=== PATIENT | female | born 1975 | race African-American/Black ===

== ENCOUNTER 2016-07-12 10:21 | Emergency (ER) | payer OTHER ==
[~2016-07-12] VITALS: Ht 162.6 cm; Wt 91.0 kg
[~2016-07-12 10:21] MED LIST: IBUP100T53; TYLENOL WITH CODEINE
[2016-07-12] MEDS ORDERED: METHOCARBAMOL 500MG TABLET PO ONE (14:30)
[2016-07-12] MEDS ORDERED: KETOROLAC 60MG/2ML VIAL IM ONE (14:30)
[2016-07-12] MEDS ORDERED: HYDROCODONE/ACETAMINOPHEN 5/325MG TABLET PO ONE (14:30)
[2016-07-12 14:45] VITALS: BP 129/71
[2016-07-12 14:47] LABS: BASOPHILS % 0.5 % (0.0-2.0); EOSINOPHILS % 0.2 % (0.0-5.0); HEMATOCRIT. 37.1 % (36.0-48.0); HEMOGLOBIN. 12.5 g/dL (12.0-16.0); LYMPHOCYTES % 12.4 % (20.0-50.0); MEAN CORPUSCULAR HEMOGLOBIN 30.3 pg (28.0-32.0); MEAN CORPUSCULAR HGB CONC 33.8 g/dL (31.0-37.0); MEAN CORPUSCULAR VOLUME 89.9 fL (81.0-99.0); MEAN PLATELET VOLUME 8.7 fl (7.4-10.4); MONOCYTES % 13.6 % (2.0-8.0); NEUTROPHILS % 73.3 % (40.0-76.0); PLATELET 287 x1000/uL (130-400); RED BLOOD CELL COUNT 4.13 mill/uL (4.2-5.4); RED CELL DISTRIBUTION WIDTH 13.9 % (11.6-14.6); WHITE BLOOD COUNT 6.3 x1000/uL (4.5-11.0)
[2016-07-12 14:52] LABS: CHLORIDE 101 mEq/L (98-107)
[2016-07-12 15:01] LABS: ALANINE AMINOTRANSFERASE 20 IU/L (13-61); ALBUMIN 3.7 g/dL (3.4-5.0); ANION GAP 11; CALCIUM 8.9 mg/dL (8.5-10.1); CARBON DIOXIDE 31 mEq/L (21-32); INDEX HEMOLYSI 1 (1-3); INDEX ICTERIC 1 (1-4); INDEX LIPEMIC 1 (1-3); UREA NITROGEN BLOOD 8 mg/dL (7-21); eGFR > 60 mL/min (>60)
== END 2016-07-12 17:44 | disposition home or self-care (01) ==
LOC: ER 11:15
DX: J11.1 Influenza due to unidentified influenza virus with other respiratory manifestations (principal); Z98.890 Other specified postprocedural states; Z97.5 Presence of (intrauterine) contraceptive device
CPT/HCPCS: 36415; 71010; 80053; 85025; 87804; 93005; 96372; 99285; J1885; Z7610

== ENCOUNTER 2016-07-24 09:09 | Emergency (ER) | payer OTHER ==
[~2016-07-24] VITALS: Ht 154.9 cm; Wt 91.0 kg
[2016-07-24] MEDS ORDERED: LORAZEPAM 2MG/ML CPJ IV ONE (16:00)
[2016-07-24] MEDS ORDERED: IPRATROPIUM/ALBUTEROL 0.5-3(2.5)MG/3ML NEB HHN ONE (16:15)
[2016-07-24] MEDS ORDERED: IPRATROPIUM/ALBUTEROL 0.5-3(2.5)MG/3ML NEB HHN NR (16:15)
[2016-07-24 17:00] VITALS: BP 132/87
== END 2016-07-24 17:43 | disposition home or self-care (01) ==
LOC: ER 09:10
DX: J45.909 Unspecified asthma, uncomplicated (principal); D64.9 Anemia, unspecified; Z79.1 Long term (current) use of non-steroidal anti-inflammatories (NSAID)
CPT/HCPCS: 94640; 99283; J7620

== ENCOUNTER 2017-08-13 10:34 | Emergency (ER) | payer MEDICAID, OTHER ==
[~2017-08-13] VITALS: Ht 162.6 cm; Wt 93.0 kg
[2017-08-13] MEDS ORDERED: FAMOTIDINE 20MG/2ML VIAL IV STA (11:06)
[2017-08-13] MEDS ORDERED: MORPHINE SULFATE 4 MG/ML CPJ (NOT FOR IM USE) IV STA (11:06)
[2017-08-13] MEDS ORDERED: ONDANSETRON HCL 4MG/2ML VIAL IV STA (11:06)
[2017-08-13] MEDS ORDERED: SODIUM CHLORIDE 0.9% 1,000 ML IV ONE (11:06)
[2017-08-13 11:23] LABS: BASOPHILS % 0.5 % (0.0-2.0); HEMATOCRIT. 37.7 % (36.0-48.0); HEMOGLOBIN. 13.1 g/dL (12.0-16.0); LYMPHOCYTES % 29.7 % (20.0-50.0); MEAN CORPUSCULAR HEMOGLOBIN 31.2 pg (28.0-32.0); MEAN CORPUSCULAR VOLUME 89.6 fL (81.0-99.0); MEAN PLATELET VOLUME 9.3 fl (7.4-10.4); MONOCYTES % 7.8 % (2.0-8.0); PLATELET 362 x1000/uL (130-400); RED BLOOD CELL COUNT 4.21 mill/uL (4.2-5.4); RED CELL DISTRIBUTION WIDTH 14.2 % (11.6-14.6)
[2017-08-13 11:30] LABS: CHLORIDE 105 mEq/L (98-107)
[2017-08-13 11:31] LABS: PARTIAL THROMBOPLASTIN TIME 28.2 sec (23.4-31.0); PROTHROMBIN TIME 10.7 sec (9.4-11.6)
[2017-08-13 12:12] LABS: CLARITY URINE CLEAR (CLEAR); COLOR URINE YELLOW (YELLOW); KETONES URINE NEGATIVE (NEGATIVE); LEUKOCYTE ESTERASE URINE NEGATIVE (NEGATIVE); NITRITE URINE NEGATIVE (NEGATIVE); OCCULT BLOOD URINE 2+ (NEGATIVE); PH URINE 5.5 (4.5-8.0); PROTEIN URINE NEGATIVE (NEGATIVE); SPECIFIC GRAVITY URINE 1.015 (1.005-1.030); UROBILINOGEN URINE 0.2 E.U./dL (0.2-1.0)
[2017-08-13 12:15] LABS: HCG SCREEN NEGATIVE
[2017-08-13] MEDS ORDERED: CEFTRIAXONE 1 G PREMIX 50 ML IV ONE (13:00)
[2017-08-13 15:55] VITALS: BP 138/68
== END 2017-08-13 15:55 | disposition home or self-care (01) ==
LOC: ER 12:17
DX: K80.70 Calculus of gallbladder and bile duct without cholecystitis without obstruction (principal); N39.0 Urinary tract infection, site not specified; E66.9 Obesity, unspecified; K21.9 Gastro-esophageal reflux disease without esophagitis
CPT/HCPCS: 36415; 74021; 74022; 76705; 80053; 81003; 81025; 83690; 84703; 85025; 85610; 85730; 96361; 96365; 96375; 99285; J0696; J2270; J2405; J3490; J7030; Z7610

== ENCOUNTER 2022-08-25 12:15 | Emergency (ER) | payer MEDICAID ==
[~2022-08-25] VITALS: Ht 170.2 cm; Wt 74.0 kg
[2022-08-25] MEDS ORDERED: TETANUS, DIPHTHERIA, PERTUSSIS VAC/PF 0.5ML (>10YR OLD) IM ONE ×2 (16:45→18:00)
[2022-08-25] MEDS ORDERED: SILVER SULFADIAZINE 1% CREAM 25GM TOP ONE (16:45)
[2022-08-25] MEDS ORDERED: KETOROLAC 60MG/2ML VIAL IM ONE (16:45)
[2022-08-25] MEDS ORDERED: CEPHALEXIN 250MG CAPSULE PO ONE (16:45)
[2022-08-25] MEDS ORDERED: CEPH500C2 MT (16:48)
[2022-08-25] MEDS ORDERED: T3 PO (16:48)
[2022-08-25] MEDS ORDERED: IBUP-2029 MT (16:48)
[2022-08-25] MEDS ORDERED: SILV50CR31 TP (16:48)
[2022-08-25] MEDS ORDERED: CEPHALEXIN 250MG CAPSULE PO NR (17:00)
[2022-08-25 17:10] VITALS: BP 152/92
[2022-08-25] MEDS ORDERED: KETOROLAC 30MG/ML VIAL IM NR (17:15)
== END 2022-08-25 18:00 | disposition home or self-care (01) ==
LOC: ER 12:15
DX: T21.21XA Burn of second degree of chest wall, initial encounter (principal); T31.0 Burns involving less than 10% of body surface; X08.8XXA Exposure to other specified smoke, fire and flames, initial encounter; Y93.89 Activity, other specified; Y92.89 Other specified places as the place of occurrence of the external cause; Y99.8 Other external cause status; D64.9 Anemia, unspecified; Z98.890 Other specified postprocedural states; Z79.899 Other long term (current) drug therapy
CPT/HCPCS: 90471; 90715; 96372; 99284; J1885; Z7610

== ENCOUNTER 2023-03-14 11:15 | Emergency (ER) | payer MEDICAID ==
[~2023-03-14] VITALS: Ht 167.6 cm; Wt 100.0 kg
[~2023-03-14 11:15] MED LIST changes: +CEPH500C2 MT; +IBUP-2029 MT; +SILV50CR31 TP; +T3 PO
[2023-03-14 11:30] VITALS: O2SAT 100
[2023-03-14] MEDS ORDERED: KETOROLAC 30MG/ML VIAL IM ONE (12:30)
[2023-03-14] MEDS ORDERED: NAPR-1176 MT (13:44)
[2023-03-14] MEDS ORDERED: AMOX1TAB16 MT (13:46)
[2023-03-14] MEDS ORDERED: KETOROLAC 30MG/ML VIAL IM NR (14:45)
[2023-03-14 14:58] VITALS: BP 153/94
[2023-03-14 15:06] VITALS: PULSE 109; RESP 18; TEMP 98.2
== END 2023-03-14 15:09 | disposition home or self-care (01) ==
LOC: ER 11:24
DX: K04.7 Periapical abscess without sinus (principal); H92.01 Otalgia, right ear; D64.9 Anemia, unspecified; Z98.890 Other specified postprocedural states
CPT/HCPCS: 96372; 99283; J1885; Z7610

== ENCOUNTER 2023-10-03 07:12 | Emergency (ER) | payer MEDICAID ==
[~2023-10-03] VITALS: Ht 162.6 cm; Wt 73.0 kg
[~2023-10-03 07:12] MED LIST changes: +AMOX1TAB16 MT; +NAPR-1176 MT
[2023-10-03 07:15] VITALS: BP 145/88; PULSE 86; RESP 18; TEMP 98; O2SAT 99
[2023-10-03] MEDS: KETOROLAC 30MG/ML VIAL IM ONE (08:58)
== END 2023-10-03 10:36 | disposition home or self-care (01) ==
LOC: ER 07:12
DX: M54.9 Dorsalgia, unspecified (principal); D64.9 Anemia, unspecified; Z98.890 Other specified postprocedural states
CPT/HCPCS: 99283; 81025; 96372; J1885

== ENCOUNTER 2023-10-09 19:21 | Emergency (ER) | payer MEDICAID ==
[~2023-10-09] VITALS: Ht 165.1 cm; Wt 80.0 kg
[2023-10-09 19:28] VITALS: TEMP 98.2; O2SAT 100
[2023-10-09 20:00] VITALS: BP 136/73; PULSE 81; RESP 16
[2023-10-09] MEDS: KETOROLAC 30MG/ML VIAL IM ONE (20:00)
[2023-10-09] MEDS ORDERED: METH-653 MT (20:23)
[2023-10-09] MEDS ORDERED: IBUP-2029 MT (20:23)
[2023-10-09] MEDS: METHOCARBAMOL 500MG TABLET PO ONE (20:41)
== END 2023-10-09 21:24 | disposition home or self-care (01) ==
LOC: ER 19:21
DX: S39.012A Strain of muscle, fascia and tendon of lower back, initial encounter (principal); Z79.899 Other long term (current) drug therapy; X58.XXXA Exposure to other specified factors, initial encounter; Y93.89 Activity, other specified; Y92.89 Other specified places as the place of occurrence of the external cause; Y99.8 Other external cause status
CPT/HCPCS: 99283; 96372; J1885

== ENCOUNTER 2023-11-21 04:11 | Emergency (ER) | payer MEDICAID ==
[~2023-11-21] VITALS: Ht 170.2 cm; Wt 77.0 kg
[~2023-11-21 04:11] MED LIST changes: +METH-653 MT
[2023-11-21 04:15] VITALS: O2SAT 100
[2023-11-21] MEDS ORDERED: ACETAMINOPHEN 325MG TABLET PO ONE (05:00)
[2023-11-21] MEDS: LIDOCAINE 5% PATCH TOP SCH (05:00)
[2023-11-21] MEDS ORDERED: METHOCARBAMOL 500MG TABLET PO ONE (06:00)
[2023-11-21] MEDS ORDERED: KETOROLAC 30MG/ML VIAL IM ONE (06:00)
[2023-11-21] MEDS: ACETAMINOPHEN 325MG TABLET PO NR (08:15)
[2023-11-21] MEDS: METHOCARBAMOL 500MG TABLET PO NR (08:15)
[2023-11-21] MEDS: KETOROLAC 30MG/ML VIAL IM NR (08:15)
[2023-11-21] MEDS ORDERED: METH-653 MT (08:42)
[2023-11-21] MEDS ORDERED: KETO10TA2 MT (08:42)
[2023-11-21 09:55] VITALS: BP 145/89; PULSE 80; RESP 16; TEMP 98.4
== END 2023-11-21 10:20 | disposition home or self-care (01) ==
LOC: ER 04:22
DX: M54.9 Dorsalgia, unspecified (principal)
CPT/HCPCS: 99284; 81025; 96372; J1885

== ENCOUNTER 2024-02-21 08:51 | Emergency (ER) | payer MEDICAID ==
[~2024-02-21] VITALS: Ht 162.6 cm; Wt 82.0 kg
[~2024-02-21 08:51] MED LIST changes: +KETO10TA2 MT; +METH4TAB95 MT
[2024-02-21 08:54] VITALS: O2SAT 100
[2024-02-21] MEDS ORDERED: IBUP-2028 PO (08:56)
[2024-02-21 09:18] VITALS: BP 118/63
[2024-02-21] MEDS: ACETAMINOPHEN 325MG TABLET PO ONE (09:18)
[2024-02-21] MEDS: KETOROLAC 30MG/ML VIAL IM ONE (09:18)
[2024-02-21 09:20] VITALS: PULSE 72; RESP 16; TEMP 36.66960; O2SAT 100
== END 2024-02-21 09:19 | disposition home or self-care (01) ==
LOC: ER 09:06
DX: G89.29 Other chronic pain (principal); M54.50 Low back pain, unspecified; Z79.899 Other long term (current) drug therapy
CPT/HCPCS: 96372; 99283; J1885; Z7610

== ENCOUNTER 2024-03-25 16:27 | Emergency (ER) | payer MEDICAID ==
[~2024-03-25] VITALS: Ht 162.6 cm; Wt 63.0 kg
[~2024-03-25 16:27] MED LIST changes: +IBUP-2028 PO
[2024-03-25 17:16] VITALS: O2SAT 100
[2024-03-25 17:53] LABS: BASOPHILS % 0.3 % (0.0-2.0); EOSINOPHILS % 4.6 % (0.0-5.0); HEMATOCRIT. 21.8 % (36.0-48.0); HEMOGLOBIN. 7.2 g/dL (12.0-16.0); LYMPHOCYTES % 33.4 % (20.0-50.0); MEAN CORPUSCULAR HEMOGLOBIN 30.2 pg (28.0-32.0); MEAN CORPUSCULAR HGB CONC 33.2 g/dL (31.0-37.0); MEAN CORPUSCULAR VOLUME 90.9 fL (81.0-99.0); MEAN PLATELET VOLUME 7.1 fl (7.4-10.4); MONOCYTES % 10.4 % (2.0-8.0); NEUTROPHILS % 51.3 % (40.0-76.0); PLATELET 469 x1000/uL (130-400); RED CELL DISTRIBUTION WIDTH 21.3 % (11.6-14.6); WHITE BLOOD COUNT 4.9 x1000/uL (4.5-11.0)
[2024-03-25 18:04] LABS: CHLORIDE 101 mEq/L (98-107); POTASSIUM 4.1 mEq/L (3.5-5.1); SODIUM 131 mEq/L (136-145)
[2024-03-25 18:05] LABS: CALCIUM 8.8 mg/dL (8.7-10.4); CARBON DIOXIDE 27 mEq/L (21-32)
[2024-03-25 18:10] LABS: CREATININE 1.1 mg/dL (0.6-1.0); GLUCOSE 80 mg/dL (70-105); UREA NITROGEN BLOOD 18 mg/dL (9-23)
[2024-03-25 18:11] LABS: HCG SCREEN NEGATIVE; TROPONIN I HIGH SENSITIVITY < 4 ng/L (3.0-34)
[2024-03-25 18:12] LABS: ALANINE AMINOTRANSFERASE 12 IU/L (10-49); ALBUMIN 3.1 g/dL (3.2-4.8); ASPARTATE AMINOTRANSFERASE 21 IU/L (<34); BILIRUBIN TOTAL 0.3 mg/dL (0.1-1.0); PROTEIN TOTAL 11.9 g/dL (6.0-8.3)
[2024-03-25 18:14] LABS: BILIRUBIN DIRECT < 0.1 mg/dL (<=3.0)
[2024-03-26 07:30] VITALS: TEMP 36.61404
[2024-03-26 10:28] VITALS: BP 109/73; PULSE 64; RESP 16; O2SAT 99
== END 2024-03-26 10:29 | disposition home or self-care (01) ==
LOC: ER 16:27
DX: D64.9 Anemia, unspecified (principal); Z98.890 Other specified postprocedural states
CPT/HCPCS: 36415; 71045; 80048; 80076; 84484; 84703; 85025; 86850; 86900; 93005; 99285

== ENCOUNTER 2024-12-25 06:06 | Emergency (ER) | payer OTHER ==
[~2024-12-25] VITALS: Ht 154.9 cm; Wt 64.0 kg
[~2024-12-25 06:06] MED LIST changes: +IBUP-1455 MT; -IBUP-2029 MT
[2024-12-25 06:11] VITALS: O2SAT 100
[2024-12-25] MEDS ORDERED: AMOX1TAB16 PO (07:26)
[2024-12-25] MEDS ORDERED: TOPUD PO (07:26)
[2024-12-25] MEDS: ACETAMINOPHEN 325MG TABLET PO ONE (07:47)
[2024-12-25 07:50] VITALS: BP 107/68; PULSE 82; RESP 18; TEMP 36.5; O2SAT 100
== END 2024-12-25 07:52 | disposition home or self-care (01) ==
LOC: ER 06:23
DX: H66.92 Otitis media, unspecified, left ear (principal); Z79.1 Long term (current) use of non-steroidal anti-inflammatories (NSAID); Z79.899 Other long term (current) drug therapy; Z98.890 Other specified postprocedural states
CPT/HCPCS: 99283

== ENCOUNTER 2025-01-07 13:26 | Emergency (ER) | payer OTHER ==
[~2025-01-07] VITALS: Ht 154.9 cm; Wt 59.0 kg
[~2025-01-07 13:26] MED LIST changes: +AMOX1TAB16 PO; +TOPUD PO
[2025-01-07 13:35] VITALS: O2SAT 100
[2025-01-07 16:04] LABS: BASOPHILS % 0.6 % (0.0-2.0); EOSINOPHILS % 9.8 % (0.0-5.0); LYMPHOCYTES % 45.2 % (20.0-50.0); MEAN PLATELET VOLUME 6.8 fl (7.4-10.4); MONOCYTES % 8.1 % (2.0-8.0); NEUTROPHILS % 36.3 % (40.0-76.0); PLATELET 348 x1000/uL (130-400); RED BLOOD CELL COUNT 1.98 mill/uL (4.2-5.4); RED CELL DISTRIBUTION WIDTH 22.3 % (11.6-14.6)
[2025-01-07 16:09] LABS: ADD RBC MORPHOLOGY YES; HEMATOCRIT. 17.3 % (36.0-48.0); HEMOGLOBIN. 5.7 g/dL (12.0-16.0)
[2025-01-07 16:20] LABS: CREATININE 1.5 mg/dL (0.6-1.0); UREA NITROGEN BLOOD 22 mg/dL (9-23)
[2025-01-07 16:21] LABS: ASPARTATE AMINOTRANSFERASE 28 IU/L (<34)
[2025-01-07 16:22] LABS: BILIRUBIN DIRECT < 0.1 mg/dL (<=3.0); BILIRUBIN TOTAL 0.2 mg/dL (0.1-1.0)
[2025-01-07 16:26] LABS: PROTEIN TOTAL > 12.0 g/dL (6.0-8.3)
[2025-01-07 16:49] LABS: PLATELET ESTIMATE NORMAL
[2025-01-07] MEDS ORDERED: DOCU-422 MT (17:37)
[2025-01-07] MEDS ORDERED: FERR325T6 MT (17:37)
[2025-01-07] MEDS ORDERED: FLUT9.9S BOTHNSTRLS (17:37)
[2025-01-07] MEDS ORDERED: AMOX1TAB16 MT (17:37)
[2025-01-07 18:12] VITALS: BP 140/84; PULSE 56; RESP 16; TEMP 37.1; O2SAT 100
== END 2025-01-07 18:13 | disposition left against medical advice (07) ==
LOC: ER 13:26
DX: H66.92 Otitis media, unspecified, left ear (principal); D64.9 Anemia, unspecified; D72.819 Decreased white blood cell count, unspecified; E87.1 Hypo-osmolality and hyponatremia; E87.5 Hyperkalemia; H91.90 Unspecified hearing loss, unspecified ear; Z53.29 Procedure and treatment not carried out because of patient's decision for other reasons; Z59.01 Sheltered homelessness; Z79.1 Long term (current) use of non-steroidal anti-inflammatories (NSAID)
CPT/HCPCS: 36415; 80048; 80076; 85025; 99283

== ENCOUNTER 2025-01-08 11:54 | Emergency (ER) | payer OTHER ==
[~2025-01-08] VITALS: Ht 154.9 cm; Wt 60.0 kg
[~2025-01-08 11:54] MED LIST changes: +DOCU-422 MT; +FERR325T6 MT; +FLUT9.9S BOTHNSTRLS
[2025-01-08 12:02] VITALS: O2SAT 100
[2025-01-08 12:35] LABS: BASOPHILS % 0.8 % (0.0-2.0); EOSINOPHILS % 9.7 % (0.0-5.0); LYMPHOCYTES % 45.9 % (20.0-50.0); MEAN PLATELET VOLUME 6.7 fl (7.4-10.4); MONOCYTES % 7.7 % (2.0-8.0); NEUTROPHILS % 35.9 % (40.0-76.0); PLATELET 361 x1000/uL (130-400); RED BLOOD CELL COUNT 2.09 mill/uL (4.2-5.4); RED CELL DISTRIBUTION WIDTH 21.7 % (11.6-14.6)
[2025-01-08 12:53] LABS: HEMATOCRIT. 18.1 % (36.0-48.0); HEMOGLOBIN. 6.0 g/dL (12.0-16.0)
[2025-01-08 15:17] LABS: INR 1.6
[2025-01-08 15:18] LABS: CREATININE 1.4 mg/dL (0.6-1.0)
[2025-01-08 15:20] LABS: UREA NITROGEN BLOOD 20.0 mg/dL (9-23)
[2025-01-08 15:21] LABS: HCG SCREEN NEGATIVE
[2025-01-08 15:24] VITALS: BP 118/80; PULSE 76; RESP 16; TEMP 37.1; O2SAT 100
== END 2025-01-08 14:16 | disposition short-term general hospital (02) ==
LOC: ER 12:49 → CANBEDREQ 14:11 → ER 14:16
DX: N18.9 Chronic kidney disease, unspecified (principal); D63.1 Anemia in chronic kidney disease; N17.9 Acute kidney failure, unspecified; R53.1 Weakness; Z79.1 Long term (current) use of non-steroidal anti-inflammatories (NSAID); Z79.899 Other long term (current) drug therapy; Z98.890 Other specified postprocedural states
CPT/HCPCS: 80048; 84703; 85025; 85610; 85730; 86850; 86900; 86901; 86920; 36415; 99291; Z7610; A4606

== ENCOUNTER 2025-02-15 12:19 | Emergency (ER) | payer OTHER ==
[~2025-02-15] VITALS: Ht 160 cm; Wt 70.0 kg
[2025-02-15 12:25] VITALS: TEMP 36.9; O2SAT 100
[2025-02-15 13:06] LABS: CLARITY URINE CLOUDY (CLEAR); COLOR URINE YELLOW (YELLOW); GLUCOSE URINE NEGATIVE (NEGATIVE); KETONES URINE NEGATIVE (NEGATIVE); LEUKOCYTE ESTERASE URINE TRACE (NEGATIVE); NITRITE URINE NEGATIVE (NEGATIVE); OCCULT BLOOD URINE 2+ (NEGATIVE); PH URINE 6.0 (4.5-8.0); PROTEIN URINE TRACE (NEGATIVE); SPECIFIC GRAVITY URINE 1.015 (1.005-1.030); UROBILINOGEN URINE 0.2 E.U./dL (0.2-1.0)
[2025-02-15 13:20] LABS: HYALINE CASTS URINE 0-5 /lpf; SQUAMOUS EPITHELIAL CELL URINE 3+ /lpf (RARE/1+)
[2025-02-15 13:21] LABS: BACTERIA URINE 3+; WBC URINE 0-2 /hpf (0-2)
[2025-02-15 13:28] LABS: BASOPHILS % 0.5 % (0.0-2.0); EOSINOPHILS % 6.7 % (0.0-5.0); HEMATOCRIT. 21.3 % (36.0-48.0); HEMOGLOBIN. 7.2 g/dL (12.0-16.0); LYMPHOCYTES % 42.9 % (20.0-50.0); MEAN PLATELET VOLUME 7.1 fl (7.4-10.4); MONOCYTES % 9.3 % (2.0-8.0); NEUTROPHILS % 40.6 % (40.0-76.0); PLATELET 248 x1000/uL (130-400); RED BLOOD CELL COUNT 2.41 mill/uL (4.2-5.4); RED CELL DISTRIBUTION WIDTH 19.9 % (11.6-14.6)
[2025-02-15] MEDS ORDERED: CYCL10TA21 MT (13:45)
[2025-02-15] MEDS ORDERED: CEPH500T MT (13:45)
[2025-02-15 13:49] LABS: CREATININE 1.2 mg/dL (0.6-1.0); UREA NITROGEN BLOOD 21.0 mg/dL (9-23)
[2025-02-15] MEDS: CYCLOBENZAPRINE 10MG TABLET PO ONE (13:51)
[2025-02-15] MEDS: CEPHALEXIN 250MG CAPSULE PO ONE (13:51)
[2025-02-15 13:53] VITALS: BP 112/61; PULSE 78; RESP 16; O2SAT 100
== END 2025-02-15 14:03 | disposition home or self-care (01) ==
LOC: ER 12:19
DX: N12 Tubulo-interstitial nephritis, not specified as acute or chronic (principal); M54.50 Low back pain, unspecified; D64.9 Anemia, unspecified; F41.9 Anxiety disorder, unspecified; Z98.890 Other specified postprocedural states; Z79.899 Other long term (current) drug therapy
CPT/HCPCS: 36415; 80048; 81003; 81025; 85025; 99283